=== PATIENT | male | born 1990 | race Hispanic/Latino ===

== ENCOUNTER 2017-10-08 14:47 | Emergency (ER) | payer MEDICAID ==
[2017-10-08 14:59] VITALS: BP 132/77; PULSE 98; RESP 17; TEMP 97.6; O2SAT 100
--- NOTE | 2017-10-08 15:31 | ED PDOC ---
Arrival/HPI - General Chief Complaint: Syncope Time Seen by Provider: 10/08/17 15:00 Historian: Patient - History of Present Illness Narrative History of Present Illness (Text): 10/08/17 15:27 A 27 year old male presents to the emergency department after syncopal episode. Patient was with his in our emergency room just now who was getting evaluated for possible miscarriage. Patient passed out while in triage and bumped his head on the wall. MARGOT Patten and ROLA Lainez comment who witnessed the episode said it occurred right after he heard the news and they stae he had no significant trauma to his head or other injuries. He states he feels fine and denies any pain or discomfort at this time. Patient denies any fever, chills, nausea, vomiting, abdominal pain, back pain, chest pain, shortness of breath, neck pain, headache, dizziness, or any other complaints. Time/Duration: Other (while in emergency room) Symptom Course: Resolved Past Medical History - Provider Review Nursing Documentation Reviewed: Yes - Infectious Disease Hx of Infectious Diseases: None - Psychiatric Hx Substance Use: Yes (weed) - Anesthesia Hx Anesthesia: No Family/Social History - Physician Review Nursing Documentation Reviewed: Yes Family/Social History: No Known Family HX Smoking Status: Current Some Days Smoker Hx Alcohol Use: Yes Frequency of alcohol use: Socially Hx Substance Use: Yes (weed) Allergies/Home Meds Allergies/Adverse Reactions: Allergies No Known Allergies Allergy (Verified 10/08/17 14:58) Home Medications: Home Meds Medication Instructions Recorded Confirmed No Known Home Med 10/08/17 10/08/17 Review of Systems - Physician Review All systems were reviewed & negative as marked: Yes - Review of Systems Constitutional: absent: Fevers, Night Sweats Respiratory: absent: SOB Cardiovascular: Syncope. absent: Chest Pain Gastrointestinal: absent: Abdominal Pain, Nausea, Vomiting Musculoskeletal: absent: Back Pain, Neck Pain Neurological: absent: Headache, Dizziness Physical Exam Vital Signs Reviewed: Yes Vital Signs Temp Pulse Resp BP Pulse Ox 10/08/17 14:58 97.6 F 98 H 17 132/77 100 Temperature: Afebrile Blood Pressure: Normal Pulse: Tachycardic Respiratory Rate: Normal Appearance: Positive for: Well-Appearing, Non-Toxic, Comfortable Pain Distress: None Mental Status: Positive for: Alert and Oriented X 3 - Systems Exam Head: Present: Atraumatic, Normocephalic Pupils: Present: PERRL Extroacular Muscles: Present: EOMI Conjunctiva: Present: Normal Mouth: Present: Moist Mucous Membranes Neck: Present: Normal Range of Motion. No: MIDLINE TENDERNESS, Paraspinal Tenderness Respiratory/Chest: Present: Clear to Auscultation, Good Air Exchange. No: Respiratory Distress, Accessory Muscle Use Cardiovascular: Present: Regular Rate and Rhythm, Normal S1, S2. No: Murmurs Abdomen: Present: Normal Bowel Sounds. No: Tenderness, Distention, Peritoneal Signs Back: Present: Normal Inspection. No: Midline Tenderness, Paraspinal Tenderness Upper Extremity: Present: Normal Inspection, Normal ROM, NORMAL PULSES. No: Cyanosis, Edema Lower Extremity: Present: Normal Inspection, NORMAL PULSES, Normal ROM. No: Edema Neurological: Present: GCS=15, CN II-XII Intact, Speech Normal, Motor Func Grossly Intact, Normal Sensory Function, Gait Normal Skin: Present: Warm, Dry, Normal Color. No: Rashes Psychiatric: Present: Alert, Oriented x 3, Normal Insight, Normal Concentration Medical Decision Making ED Course and Treatment: 10/08/17 15:27 Impression: A 27 year old with syncopal episode. Patient denies any complaints at this time. Differential Diagnosis included but are not limited to: Vasovagal syncope Progress Notes: Patient offered EKG and finger stick in the emergency room. He refused stating he feels fine and would like to be discharged. Patient instructed to follow up with pmd. - Scribe Statement The provider has reviewed the documentation as recorded by the Israelibbill Toussaint Provider Scribe Attestation: All medical record entries made by the Scribbill were at my direction and personally dictated by me. I have reviewed the chart and agree that the record accurately reflects my personal performance of the history, physical exam, medical decision making, and the department course for this patient. I have also personally directed, reviewed, and agree with the discharge instructions and disposition. Disposition/Present on Arrival - Present on Arrival Any Indicators Present on Arrival: No History of DVT/PE: No History of Uncontrolled Diabetes: No Urinary Catheter: No History of Decub. Ulcer: No History Surgical Site Infection Following: None - Disposition Have Diagnosis and Disposition been Completed?: Yes Diagnosis: Vasovagal syncope Disposition: HOME/ ROUTINE Disposition Time: 15:27 Patient Plan: Discharge Condition: IMPROVED Discharge Instructions (ExitCare): Syncope (ED) Additional Instructions: Mr Gusman, thank you for letting us take care of you today. Your provider was Dr. Nobles. You were treated for Vasovagal Syncope. The emergency medical care you received today was directed at your acute symptoms. If you were prescribed any medication, please fill it and take as directed. It may take several days for your symptoms to resolve. Return to the Emergency Department if your symptoms worsen, do not improve, or if you have any other problems. Please contact your doctor or call one of the physicians/clinics you have been referred to that are listed on the Patient Visit Information form that is included in your discharge packet. Bring any paperwork you were given at discharge with you along with any medications you are taking to your follow up visit. Our treatment cannot replace ongoing medical care by a primary care provider (PCP) outside of the emergency department. Thank you for allowing the [facility] team to be part of your care today. If you had an X-Ray or CT scan: A Radiologist will review the ED reading if any change in treatment is needed we will contact you. If you had a blood, urine, or wound culture: It will take several days for the results, if any change in treatment is needed we will contact you. If you had an STI test: It will take 48 hours for the results. Please call after 1 week if you have not heard back. Referrals: [facility], [Primary Care Provider] - Follow up with primary Forms: [employer] (Hebrew), WORK NOTE
== END 2017-10-08 15:35 | disposition home or self-care (01) ==
LOC: ED 14:47
DX: R55 Syncope and collapse (principal)